=== PATIENT | male | born 1965 | race Hispanic/Latino ===

== ENCOUNTER → 2021-01-25 13:09 | Outpatient (CLI) | payer OTHER, SELFPAY ==
[2021-01-25] MEDS: COVID-19 VACC #1, MRNA(MOD) 100 MCG/0.5 ML VIAL IM (13:33)
== END ==
PROVIDERS: Visit Provider Internal Medicine
DX: Z23 Encounter for immunization (principal)
CPT/HCPCS: 0011A; 91301

== ENCOUNTER → 2021-02-23 13:12 | Outpatient (CLI) | payer OTHER, SELFPAY ==
[2021-02-23] MEDS: COVID-19 VACC #2, MRNA(MOD) 100 MCG/0.5 ML VIAL IM (13:22)
== END ==
PROVIDERS: Visit Provider Internal Medicine
DX: Z23 Encounter for immunization (principal)
CPT/HCPCS: 0012A; 91301

== ENCOUNTER 2023-01-09 02:20 | Emergency (ER) | payer OTHER, SELFPAY ==
[2023-01-09 02:26] VITALS: BP 159/98; PULSE 70; RESP 18; TEMP 36.6; O2SAT 97; BMI 36.1
--- NOTE | 2023-01-09 03:21 | ED.BACK ---
HPI - Back Pain/Injury General Chief Complaint: Back Pain/Injury Stated Complaint: back hurts, abd pain, ears hurt Time Seen by Provider: 01/09/23 02:41 Source: patient Mode of arrival: Ambulatory History of Present Illness HPI Narrative: Patient is a 57-year-old male. He states he is had weeks of bilateral ear drainage. He is scheduled to see ENT but that is not for a couple weeks. He is also here because he states that his abdomen feels distended. His lower back hurts. He also has not had a bowel movement a couple days. He would a small bowel movement but it was hard yesterday. He has laxatives at home but has not taken them. No chest pain. No shortness of breath. No vomiting. Related Data Previous Rx's Medication Instructions Recorded ofloxacin 0.3 % ear drops 10 drp EAR-BOTH DAILY 7 days #5 mL 01/09/23 Allergies Allergy/AdvReac Type Severity Reaction Status Date / Time No Known Drug Allergies Allergy Verified 01/09/23 03:47 Review of Systems ENT Ears, Nose, Mouth, and Throat: Reports system reviewed and no additional complaints, except as documented Cardiovascular Cardiovascular: Reports system reviewed and no additional complaints, except as documented Respiratory Respiratory: Reports system reviewed and no additional complaints, except as documented Gastrointestinal Gastrointestinal: Reports system reviewed and no additional complaints, except as documented Genitourinary Genitourinary: Reports system reviewed and no additional complaints, except as documented Musculoskeletal Musculoskeletal: Reports system reviewed and no additional complaints, except as documented Patient History Social History Smoking Status: Former smoker Smoking Status: Former smoker alcohol intake frequency: holidays/special occasions only Substance Use Type: does not use Exam Initial Vital Signs Initial Vital Signs: Vital Signs Temperature 98 F 01/09/23 02:26 Pulse Rate 70 01/09/23 02:26 Respiratory Rate 18 01/09/23 02:26 Blood Pressure 159/98 H 01/09/23 02:26 Pulse Oximetry 97 01/09/23 02:26 Oxygen Delivery Method Room Air 01/09/23 02:26 Const General: cooperative HENMT Ears: EAC abnormal edema and otic discharge Face and sinus: normal facial exam Resp Effort & Inspection: normal respiratory effort Auscultation: clear to auscultation bilaterally Cardio Rate: regular rate Rhythm: regular rhythm GI Inspection: normal to inspection and non-distended Skin General: no rashes or lesions noted Neuro General: patient alert, patient awake and moves all extremities Course Orders Ordered: Discontinued Medications Cyclobenzaprine HCl (Cyclobenzaprine 10 Mg Prepack) 1 bottle MISC SEEINSTR ONE Stop: 01/09/23 03:22 Last Admin: 01/09/23 03:47 Dose: 1 bottle Documented By: AP Vital Signs Vital signs: Vital Signs - 8 hr 01/09/23 02:26 Temperature 98 F Pulse Rate 70 Respiratory Rate 18 Blood Pressure 159/98 H Pulse Oximetry 97 Oxygen Delivery Method Room Air MDM - Back Pain/Injury MDM Narrative Medical decision making narrative: Patient does have otic discharge that is bilateral consistent with otitis externa. Will place him on ofloxacin drops for this. Patient has a benign abdominal exam. Given his lower back pain and his feeling of distention and small bowel movements I do suspect that this is constipation. We did discuss the use of laxatives. Based on his exam today there is no indication for any radiologic studies. Will discharge patient home. He was given return precautions. He expressed understanding and agreement Discharge Plan Departure Patient Disposition: Home Clinical Impression: Constipation, Otitis externa Instructions: DI for Otitis Externa, DI for Constipation Activity Restrictions/Additional Instructions: I recommend that you keep all of your scheduled medical appointments. I also recommend that you take the laxatives at home to help with your bowel movements. Contact your primary doctor for follow-up. Prescriptions: New ofloxacin 0.3 % drops 10 drp EAR-BOTH DAILY 7 Days Qty: 5 1RF Stand Alone Forms: Patient Portal/API
--- NOTE | 2023-01-09 03:43 | PC.NURSE ---
His ear exam was deferred to DR Mendes.Abd. exam deferred to DR Mendes.he was very thankfull when I discharged him.Gait steady,
[2023-01-09] MEDS: CYCLOBENZAPRINE 10 MG PREPACK 1 BOTTLE MISC (03:47)
== END 2023-01-09 03:40 | disposition home or self-care (01) ==
PROVIDERS: Emergency Provider Emergency Medicine
DX: H60.93 Unspecified otitis externa, bilateral (principal); K59.00 Constipation, unspecified; M54.50 Low back pain, unspecified
CPT/HCPCS: 99281

== ENCOUNTER 2023-01-18 17:34 | Emergency (ER) | payer OTHER, SELFPAY ==
[2023-01-18 17:41] VITALS: BP 173/96; PULSE 90; RESP 18; TEMP 36.6; O2SAT 96; BMI 35.1
[2023-01-18 20:23] LABS: Bacteria Urine Occasional (0-1); Culture Indicated Urine Cult Not Indicated; Mucus Urine 1+ (Negative); RBC Urine 1-5/HPF (0-5/HPF); Squamous Epithelial Cell Urine 0-1 /HPF (0-5/HPF); WBC Urine 1-5/HPF (0-5/HPF)
--- NOTE | 2023-01-18 20:50 | ED.BACK ---
HPI - Back Pain/Injury General Chief Complaint: Back Pain/Injury Stated Complaint: back and groin pain Time Seen by Provider: 01/18/23 20:50 Source: patient History of Present Illness HPI Narrative: Patient is 58-year-old male the past medical history presenting today with groin pain. He states that he works at [employer] and [employer] regularly. He denies not any specific injury. He was here last week on January 09 he reports he was having some constipation at that time but was really here for some ear pain. His abdomen was soft he took some [id number] laxatives he reports that that is doing good. However he says he has groin pain he says it is between his private in his leg seems to be in his inguinal canal area. He does not report any significant swelling. He says sometimes he gets radiation to his rectum he would like his prostate checked. He has no painful or frequent urination he really denies any testicular pain. He has no flank pain there is no pain radiating to his abdomen. No nausea vomiting or fever. Related Data Previous Rx's Medication Instructions Recorded ofloxacin 0.3 % ear drops 10 drp EAR-BOTH DAILY 7 days #5 mL 01/09/23 meloxicam 15 mg tablet 15 mg PO DAILY PRN pain #20 tabs 01/19/23 Allergies Allergy/AdvReac Type Severity Reaction Status Date / Time No Known Drug Allergies Allergy Verified 01/18/23 17:41 Review of Systems Review of Systems ROS Unobtainable: All systems reviewed & are unremarkable except as noted in HPI and below Patient History Social History Smoking Status: Former smoker Smoking Status: Former smoker alcohol intake frequency: holidays/special occasions only Substance Use Type: does not use Exam Initial Vital Signs Initial Vital Signs: Vital Signs Temperature 97.9 F 01/18/23 17:41 Pulse Rate 90 01/18/23 17:41 Respiratory Rate 18 01/18/23 17:41 Blood Pressure 173/96 H 01/18/23 17:41 Pulse Oximetry 96 01/18/23 17:41 Oxygen Delivery Method Room Air 01/18/23 17:41 GENERAL: Alert pleasant 58-year-old male and in no acute distress. HEENT: Head atraumatic,EOMI, pupils reactive, face symmetric, moist mucous membranes CARDIOVASCULAR: Regular rate and rhythm without murmurs, rubs or gallops. RESPIRATORY: Breath sounds equal bilaterally, no wheezes rales or rhonchi. ABDOMEN: Soft, nontender. Normoactive bowel sounds all 4 quadrants. No guarding or rebound. : Rashida [employer] present, no testicular pain or swelling bilaterally no inguinal canal swelling although left side is slightly more tender possibly the beginning inguinal hernia EXTREMITIES: Normal range of motion, no clubbing or edema. Neurovascularly intact NEUROLOGICAL: Alert and oriented x4.Normal gait and speech SKIN: Warm, dry, no laceration, no petechiae, no rashes or lesions. Course Orders Ordered: Discontinued Medications Cyclobenzaprine HCl (Cyclobenzaprine 10 Mg Prepack) 1 bottle MIS SEEINSTR ONE Stop: 01/18/23 22:55 Last Admin: 01/18/23 23:07 Dose: 1 bottle Documented By: AP Vital Signs Vital signs: Vital Signs - 8 hr 01/18/23 17:41 Temperature 97.9 F Pulse Rate 90 Respiratory Rate 18 Blood Pressure 173/96 H Pulse Oximetry 96 Oxygen Delivery Method Room Air MDM - Back Pain/Injury Lab Data Labs: Lab Results 01/18/23 Range/Units 19:45 Urine RBC 1-5/hpf (0-5/HPF) Urine WBC 1-5/hpf (0-5/HPF) Ur Squamous Epith Cells 0-1 /hpf (0-5/HPF) Urine Bacteria Occasional (0-1) (None) Urine Mucus 1+ H (Negative) Ur Culture Indicated? Cult not indicated Urine Dip Bedside Urine Glucose Negative Bedside Urine Bilirubin - Negative Bedside Urine Ketone +++ 80 Urine Specific [place] 1.030 Bedside Urine Occult Blood - Negative Bedside Urine pH 5.5 Bedside Urine Protein +/- 15 Bedside Urine Urobilinogen - Negative Bedside Urine Nitrite - Negative Bedside Urine Leukocytes - Negative Esterase [facility] Narrative Medical decision making narrative: Patient is 58-year-old male was more left inguinal groin area pain rather than right there is possibly the start although I do not really appreciate any obvious swelling. He is no nausea vomiting or constipation. Without any obvious swelling no real need for imaging he has been in the ER for numerous hours and is anxious to go home. This time I see no need for any emergent imaging Discharge Plan Departure Patient Disposition: Home Clinical Impression: Inguinal hernia Instructions: DI for Groin Hernia Activity Restrictions/Additional Instructions: *You have been diagnosed with possible small inguinal hernia *What to do: At this time it may be the start of a hernia which has why you feel it although I can not feel it on exam. He may need an ultrasound or CT if it is getting worse. Please monitor for worsening pain and swelling *Continue to take medications as directed Meloxicam 15 mg once daily if needed for pain, do not take with other NSAIDs such as ibuprofen, Motrin, Aleve, naproxen or others Cyclobenzaprine 10 mg every 8 hours if needed for muscle, or *Follow up with your primary care provider in 2-3 days or call [phone] *Return to ER if you should have increasing swelling pain testicular swelling vomiting or any new, worsening or concerning symptoms Prescriptions: New meloxicam 15 mg tablet 15 mg PO DAILY PRN (Reason: pain) Qty: 20 0RF No Action ofloxacin 0.3 % drops 10 drp EAR-BOTH DAILY 7 Days Qty: 5 1RF Referrals: Xavier Sánchez MD [Primary Care Provider] - Stand Alone Forms: Patient Portal/API
[2023-01-18] MEDS: CYCLOBENZAPRINE 10 MG PREPACK 1 BOTTLE MISC (23:07)
== END 2023-01-18 23:15 | disposition home or self-care (01) ==
PROVIDERS: Emergency Provider Emergency Medicine; PCP Family Medicine
DX: K40.90 Unilateral inguinal hernia, without obstruction or gangrene, not specified as recurrent (principal)
CPT/HCPCS: 81003; 81015; 99282

== ENCOUNTER 2023-12-09 16:04 | Emergency (ER) | payer OTHER, SELFPAY ==
[2023-12-09 16:29] VITALS: BP 151/90; PULSE 63; RESP 18; TEMP 36.8; O2SAT 98; BMI 33.4
--- NOTE | 2023-12-09 17:24 | ED.ABDPAIN ---
HPI - Abdominal Pain <EVANGELISTA Agarwal - Last Filed: 12/09/23 17:29> General Chief Complaint: Abdominal Pain Stated Complaint: Lower back pain, ABD pain Time Seen by Provider: 12/09/23 17:03 Source: patient Mode of arrival: Ambulatory History of Present Illness HPI narrative: 58-year-old male, with history of left inguinal hernia, presents to the emergency department with intermittent left inguinal pain and right lower back spasms x1 day. Patient has been treated for back spasms in the past with a muscle relaxer. Patient has diagnosed with a left inguinal hernia in the past, but has not sought surgical intervention. Patient denies any difficulty urinating or defecating. Related Data Previous Rx's Medication Instructions Recorded ofloxacin 0.3 % ear drops 10 drp EAR-BOTH DAILY 7 days #5 mL 01/09/23 meloxicam 15 mg tablet 15 mg PO DAILY PRN pain #20 tabs 01/19/23 methocarbamol 500 mg tablet 500 mg PO TID PRN muscle spasm #20 12/09/23 tabs Allergies Allergy/AdvReac Type Severity Reaction Status Date / Time No Known Drug Allergies Allergy Verified 12/09/23 16:35 Review of Systems <EVANGELISTA Agarwal - Last Filed: 12/09/23 17:29> Review of Systems Narrative: Narrative: See HPI. GENERAL: Denies chills, fatigue, fever, sweats. HEENT: Denies sinus pain, ear pain, sore throat, difficulty swallowing, dizziness. RESPIRATORY: Denies dyspnea, cough, wheezing, sputum. CARDIOVASCULAR: Denies chest pain, palpitations, edema. GASTROINTESTINAL: Denies nausea, vomiting, abdominal pain, diarrhea, constipation. : Denies dysuria, frequency, incontinence, hematuria, urinary retention, flank pain. Endorses left inguinal bulge and discomfort. MSK: Denies weakness. Endorses right lower back spasms. SKIN: Denies rash, skin lesions, or pruritis. NEUROLOGIC: Denies weakness, dizziness, headache, numbness, confusion. PSYCHIATRIC: No concerning psychosocial issues. Patient History <EVANGELISTA Agarwal - Last Filed: 12/09/23 17:29> Social History Smoking Status: Former smoker Smoking Status: Former smoker alcohol intake frequency: holidays/special occasions only Substance Use Type: does not use Exam <EVANGELISTA Agarwal - Last Filed: 12/09/23 17:29> Narrative Exam Narrative: Exam Narrative: GENERAL: This is a well-nourished, well-developed patient, in no acute distress. HEAD: Atraumatic. Normocephalic. EYES: Pupils equal round and reactive. No scleral icterus, injection or drainage. ENT: Nose without bleeding, purulent drainage. Airway patent. NECK: Trachea midline. No JVD or lymphadenopathy. Nontender. CARDIOVASCULAR: Regular rate and rhythm without murmurs, peripheral pulses intact, cap refill <2 sec. RESPIRATORY: Breath sounds equal and clear bilaterally. No wheezes, rales, or rhonchi. No cough. No increased respiratory effort. No accessory muscle use. GASTROINTESTINAL: Abdomen soft, non-tender, nondistended without guarding or rebound. No suprapubic pain. : Left inguinal region with palpable bulge with no discoloration or worsening pain. Normal penile examination. No testicular pain or scrotal swelling. MSK: Moves all extremities. Normal range of motion, no clubbing or edema. Neurovascularly intact. NEURO: A&O x 3. SKIN: Warm, dry, no rashes or lesions noted. Initial Vital Signs Initial Vital Signs: Vital Signs Temperature 98.2 F 12/09/23 16:29 Pulse Rate 63 12/09/23 16:29 Respiratory Rate 18 12/09/23 16:29 Blood Pressure 151/90 H 12/09/23 16:29 Pulse Oximetry 98 12/09/23 16:29 Oxygen Delivery Method Room Air 12/09/23 16:29 Reviewed <Kwame Mendes DO - Last Filed: 12/09/23 17:29> Initial Vital Signs Initial Vital Signs: Vital Signs Temperature 98.2 F 12/09/23 16:29 Pulse Rate 63 12/09/23 16:29 Respiratory Rate 18 12/09/23 16:29 Blood Pressure 151/90 H 12/09/23 16:29 Pulse Oximetry 98 12/09/23 16:29 Oxygen Delivery Method Room Air 12/09/23 16:29 Course <EVANGELISTA Agarwal - Last Filed: 12/09/23 17:29> Orders Ordered: Discontinued Medications Ondansetron HCl (Ondansetron 4 Mg/2 Ml Inj) 4 mg IV NOW PRN PRN Reason: Nausea And Vomiting Ondansetron HCl (Ondansetron 4 Mg Odt) 4 mg SL NOW PRN PRN Reason: Nausea And Vomiting Vital Signs Vital signs: Vital Signs - 8 hr 12/09/23 16:29 Temperature 98.2 F Pulse Rate 63 Respiratory Rate 18 Blood Pressure 151/90 H Pulse Oximetry 98 Oxygen Delivery Method Room Air <Kwame Mendes DO - Last Filed: 12/09/23 17:29> Orders Ordered: Discontinued Medications Ondansetron HCl (Ondansetron 4 Mg/2 Ml Inj) 4 mg IV NOW PRN PRN Reason: Nausea And Vomiting Ondansetron HCl (Ondansetron 4 Mg Odt) 4 mg SL NOW PRN PRN Reason: Nausea And Vomiting Vital Signs Vital signs: Vital Signs - 8 hr 12/09/23 16:29 Temperature 98.2 F Pulse Rate 63 Respiratory Rate 18 Blood Pressure 151/90 H Pulse Oximetry 98 Oxygen Delivery Method Room Air MDM - Abdominal Pain <EVANGELISTA Agarwal - Last Filed: 12/09/23 17:29> Differential Diagnosis Differential diagnosis: Likely other (Left inguinal hernia, back spasms) Lab Data Point of care testing: Urine Dip Bedside Urine Glucose Negative Bedside Urine Bilirubin - Negative Bedside Urine Ketone - Negative Urine Specific [place] 1.030 Bedside Urine Occult Blood - Negative Bedside Urine pH 5.5 Bedside Urine Protein - Negative Bedside Urine Urobilinogen - Negative Bedside Urine Nitrite - Negative Bedside Urine Leukocytes - Negative Esterase MDM Narrative Medical decision making narrative: 58-year-old male with inguinal hernia and back spasms. Assessment was consistent with patient's complaints. Positive left inguinal hernia with no evidence incarceration. Will place a referral for General surgery for possible repair. Point of care urine dip was not consistent with UTI. Will treat muscle spasms with a muscle relaxer. Discussed plan of care, return precautions and worsening symptoms that would necessitate another ED visit. Patient verbalized understanding and was agreeable with course of action. <Kwame Mendes DO - Last Filed: 12/09/23 17:29> Lab Data Point of care testing: Urine Dip Bedside Urine Glucose Negative Bedside Urine Bilirubin - Negative Bedside Urine Ketone - Negative Urine Specific [place] 1.030 Bedside Urine Occult Blood - Negative Bedside Urine pH 5.5 Bedside Urine Protein - Negative Bedside Urine Urobilinogen - Negative Bedside Urine Nitrite - Negative Bedside Urine Leukocytes - Negative Esterase Discharge Plan Departure Patient Disposition: Home Clinical Impression: Hernia, inguinal, left, Spasm of muscle of lower back Instructions: DI for Groin Hernia Activity Restrictions/Additional Instructions: *You have been diagnosed with a left inguinal hernia and lower back spasms. My assessment was encouraging and your point of care urine dip was not consistent with UTI. We will treat the muscle spasms with a nonsedating muscle relaxer, to be used up to 3 times a day. I will also place a referral for General surgery as you should probably consider having that inguinal hernia repaired. For any worsening symptoms that include chest pain, shortness of breath or intolerable pain, please return to the emergency department. Otherwise, please follow-up with your family doctor as needed. *What to do: *Please continue to take your regular medications as directed. [x ] New medication prescriptions sent to your pharmacy: [[facility]] [ ] New medication written as a paper prescription [ ] No new medications given *Please follow up with your primary care provider in 2-3 days, call for an appointment. Let them know you were seen in the Emergency Department and that we ask that you be seen in follow up. We will electronically transmit a record of today's note if your PCP is in our system *If you do not have a primary care provider please contact the [facility] Resource line at [phone]. They will ask some questions about your medical history and help get you set up with a doctor in the community. ? Return to ER if you should have any new, worsening or concerning symptoms, such as worsening pain, severe headache, confusion, chest pain, difficulty breathing, fever greater than 101 F, shaking chills, persistent vomiting to the point that you cannot drink fluids, or other new or worsening symptoms. Prescriptions: New methocarbamol 500 mg tablet 500 mg PO TID PRN (Reason: muscle spasm) Qty: 20 0RF No Action ofloxacin 0.3 % drops 10 drp EAR-BOTH DAILY 7 Days Qty: 5 1RF meloxicam 15 mg tablet 15 mg PO DAILY PRN (Reason: pain) Qty: 20 0RF Referrals: Alok Mosher MD [Physician] - (Please evaluate left inguinal hernia for possible repair.) Xavier Sánchez MD [Primary Care Provider] - Stand Alone Forms: Patient Portal/API ED Sign-out <Kwame Mendes, DO - Last Filed: 12/09/23 17:29> Cosign ED Attending Cosignature Attestation: Dr Mendes Co-Sign Statement: I was available for consultation during this patient's emergency department visit. This chart is signed by myself for administrative purposes only. I did not have direct contact with this patient during this visit. They were seen independently by the [facility].
== END 2023-12-09 17:28 | disposition home or self-care (01) ==
PROVIDERS: Emergency Provider Registered Nurse; PCP Family Medicine
DX: K40.90 Unilateral inguinal hernia, without obstruction or gangrene, not specified as recurrent (principal); M62.830 Muscle spasm of back
CPT/HCPCS: 81003; 99281; 99283

== ENCOUNTER 2024-08-08 03:25 | Emergency (ER) | payer OTHER, SELFPAY ==
[2024-08-08 03:34] VITALS: BP 184/93; PULSE 68; RESP 16; TEMP 37; O2SAT 96; BMI 32.9
--- NOTE | 2024-08-08 03:50 | ED.URI ---
HPI - URI/Sore Throat General Chief Complaint: Dental/Oral Stated Complaint: throat hurts Time Seen by Provider: 08/08/24 03:34 Source: patient Mode of arrival: Ambulatory History of Present Illness HPI Narrative: 59-year-old male with no reported past medical history presents with 1 day of sore throat and bilateral ear pain. Took some Tylenol cold and flu prior to arrival without significant relief. Reports pain with trouble swallowing. Denies fevers. Related Data Previous Rx's Medication Instructions Recorded ofloxacin 0.3 % ear drops 10 drp EAR-BOTH DAILY 7 days #5 mL 01/09/23 meloxicam 15 mg tablet 15 mg PO DAILY PRN pain #20 tabs 01/19/23 methocarbamol 500 mg tablet 500 mg PO TID PRN muscle spasm #20 12/09/23 tabs Allergies Allergy/AdvReac Type Severity Reaction Status Date / Time No Known Drug Allergies Allergy Verified 12/09/23 16:35 Patient History Social History Smoking Status: Former smoker Smoking Status: Former smoker alcohol intake frequency: holidays/special occasions only Substance Use Type: does not use Exam Initial Vital Signs Initial Vital Signs: Vital Signs Temperature 98.6 F 08/08/24 03:34 Pulse Rate 68 08/08/24 03:34 Respiratory Rate 16 08/08/24 03:34 Blood Pressure 184/93 H 08/08/24 03:34 Pulse Oximetry 96 08/08/24 03:34 Oxygen Delivery Method Room Air 08/08/24 03:34 Const: Awake, alert, no acute distress, nontoxic appearing HEENT: R ear normal. L TM not visualized, purulent material in canal. Mild pharyngeal erythema without edema or exudates Skin: Warm, Dry, intact, no rashes Neuro: AO x3, CN II-XII grossly intact, moves all extremities Course Orders Ordered: ED Orders 08/08/24 04:05 Covid-19 + FLU A/B + RSV - PCR Stat Strep Grp A by PCR Rapid Stat Discontinued Medications Ciprofloxacin/Dexamethasone (Ciprofloxacin/Dexameth Otic Susp) 4 drops EAR-LEFT NOW ONE Stop: 08/08/24 03:51 Last Admin: 08/08/24 04:04 Dose: 4 drop Documented By: KIMMY Dexamethasone (Dexamethasone 10 Mg/Ml Vial) 10 mg PO NOW ONE Stop: 08/08/24 03:51 Last Admin: 08/08/24 04:04 Dose: 10 mg Documented By: KIMMY Vital Signs Vital signs: Vital Signs - 8 hr 08/08/24 03:34 08/08/24 05:17 Temperature 98.6 F Pulse Rate 68 62 Respiratory Rate 16 18 Blood Pressure 184/93 H 157/80 H Pulse Oximetry 96 97 Oxygen Delivery Method Room Air Room Air MDM - URI/Sore Throat Lab Data Labs: Lab Results 08/08/24 Range/Units 04:05 SARS-CoV-2 (PCR) Negative (Negative) Influenza A (RT-PCR) Flu a negative (NEGATIVE) Influenza B (RT-PCR) Flu b negative (NEGATIVE) RSV (PCR) Negative (Negative) Group A Strep (PCR) Negative (Negative) MDM Narrative Medical decision making narrative: One day of sore throat. Likely viral pharyngitis. There was mild erythema without edema or exudates present. Right ear normal, left ear with what appears to be purulent material in the canal and likely perforated tympanic membrane. 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 He has decreased hearing in his right ear. Patient given Ciprodex drops, he was advised to avoid wearing the left earpiece that he uses for work unless otherwise instructed by an ear doctor. Discharge Plan Departure Patient Disposition: Home Clinical Impression: Sore throat, Tympanic membrane irritation Instructions: DI for Tympanic Membrane Perforation-Adult, DI for Viral Pharyngitis Activity Restrictions/Additional Instructions: Your flu, COVID, RSV, and strep swabs were all negative. Your right ear looks normal, however your left ear looks as though there may be infection, and it was possible that your eardrum has a hole in it. Use the ear drops as follows: Place 3 drops into your left ear 2 times daily for 7 days Follow up with an ear doctor. You may take Tylenol and ibuprofen as needed for sore throat. Prescriptions: No Action methocarbamol 500 mg tablet 500 mg PO TID PRN (Reason: muscle spasm) Qty: 20 0RF ofloxacin 0.3 % drops 10 drp EAR-BOTH DAILY 7 Days Qty: 5 1RF meloxicam 15 mg tablet 15 mg PO DAILY PRN (Reason: pain) Qty: 20 0RF Referrals: Saul Booth MD [Physician] - Xavier Sánchez MD [Primary Care Provider] - Stand Alone Forms: Patient Portal/API
[2024-08-08] MEDS: CIPROFLOXACIN/DEXAMETH OTIC SUSP 4 DROPS EAR-LEFT (04:04)
[2024-08-08] MEDS: DEXAMETHASONE 10 MG/ML VIAL PO (04:04)
[2024-08-08 04:50] LABS: Strep Grp A by PCR Rapid Negative (Negative)
[2024-08-08 04:57] LABS: Influenza A - CEPHEID Flu A NEGATIVE (NEGATIVE); Influenza B - CEPHEID Flu B NEGATIVE (NEGATIVE); Respiratory Syncytial Virus Negative (Negative)
[2024-08-08 05:04] LABS: COVID-19 CEPHEID 4-PLEX PCR Negative (Negative)
[2024-08-08 05:17] VITALS: BP 157/80; PULSE 62; RESP 18; O2SAT 97
== END 2024-08-08 05:19 | disposition home or self-care (01) ==
PROVIDERS: Emergency Provider Emergency Medicine; PCP Family Medicine
DX: J02.9 Acute pharyngitis, unspecified (principal); H73.92 Unspecified disorder of tympanic membrane, left ear; Z11.52 Encounter for screening for COVID-19
CPT/HCPCS: 0241U; 87651; 99283; J1100